=== PATIENT | female | born 1930 | race Caucasian/White ===

== ENCOUNTER 2020-08-23 05:29 | Inpatient (IN) | payer OTHER, SELFPAY ==
[2020-08-23] VITALS (11 sets, daily range): BP systolic 61–116; BP diastolic 30–83
[~2020-08-23] VITALS: Ht 157.5 cm; Wt 61.2 kg
--- NOTE | 2020-08-23 05:29 | NUR ---
PT YEN ALS. TAKEN TO BED 10
--- NOTE | 2020-08-23 05:29 | NUR ---
Dr. Chapman examining patient.
--- NOTE | 2020-08-23 05:44 | NUR ---
Respiratory Therapist at bedside for respiratory intervention.
--- NOTE | 2020-08-23 05:44 | NUR ---
X-Ray at bedside.
[2020-08-23] MEDS ORDERED: LEVALBUTEROL 0.63 MG/3 ML NEBU INH ONE (05:50)
[2020-08-23] MEDS ORDERED: DILTIAZEM 25 MG/5 ML VIAL IVP ONE ×2 (05:50→06:35)
--- NOTE | 2020-08-23 06:00 | NUR ---
Vandana swab collected.
[2020-08-23 06:06] LABS: BASOPHILS # (AUTO) 0.1 K/uL (0.00-0.22); BASOPHILS % (AUTO) 0.5 % (0.0-2.0); EOSINOPHILS % (AUTO) 0.2 % (0.0-4.0); HEMOGLOBIN 13.2 g/dL (12.0-16.0); LYMPHOCYTES # (AUTO) 1.3 K/uL (2.5-16.5); LYMPHOCYTES % (AUTO) 12.6 % (20.5-51.1); MEAN CORPUSCULAR HEMOGLOBIN 30 pg (27-31); MEAN CORPUSCULAR HGB CONC 32 g/dL (33-37); MEAN CORPUSCULAR VOLUME 96.1 fL (80-94); MONOCYTES % (AUTO) 9.7 % (1.7-9.3); NEUTROPHILS # (AUTO) 7.7 K/uL (1.8-7.7); PLATELET COUNT (AUTO) 473 K/uL (140-450); RED BLOOD CELL COUNT(AUTO) 4.37 MIL/uL (4.20-5.40); RED CELL DISTRIBUTION WIDTH 18.1 % (11.6-13.7)
--- NOTE | 2020-08-23 06:10 | NUR ---
spoke with family member of pt regarding CT contrast consent and gave phone consent over the phone.
[2020-08-23 06:13] LABS: ANION GAP 5.5 (8-16); CARBON DIOXIDE 36.9 mmol/L (21-32); CHLORIDE 102 mmol/L (98-107); CREATININE 0.8 mg/dL (0.6-1.3); GLUCOSE 99 mg/dL (74-106); POTASSIUM 5.4 mmol/L (3.5-5.1); SODIUM SERUM 139 mmol/L (136-145); UREA NITROGEN, BLOOD 23 mg/dL (7-18)
--- NOTE | 2020-08-23 06:15 | NUR ---
bib EMS from [facility] and placed to bed 10. originally on 15lpm NRB at 88%. This is pt is an 89 year old female with hx of A.fib, HTN, GERD, glaucoma, HLD, left femur fx s/p ORIF. coming in for SOB and decreased saturations. absent BS on left side. Diminished throughout on left. CR >4. currently a/o x 2, gcs 14. placed IV on Rac, RFA. initiated sepsis protocol per Dr. Chapman. terranceda
[2020-08-23 06:19] LABS: ALBUMIN 2.9 g/dL (3.4-5.0); ASPARTATE AMINOTRANSFERASE 12 U/L (15-37); LIPASE 81 U/L (73-393); TOTAL BILIRUBIN 0.5 mg/dL (0.0-1.0)
[2020-08-23] MEDS ORDERED: AMLO10TA PO (06:20)
[2020-08-23] MEDS ORDERED: ASCO500T95 PO (06:20)
[2020-08-23] MEDS ORDERED: LACT1CAP59 PO (06:20)
[2020-08-23] MEDS ORDERED: ALPOS OP (06:20)
[2020-08-23] MEDS ORDERED: LOSA100T1 PO (06:20)
[2020-08-23] MEDS ORDERED: OMEP20EC11 PO (06:20)
[2020-08-23] MEDS ORDERED: WARF4TAB84 PO (06:20)
--- NOTE | 2020-08-23 06:20 | NUR ---
Bipap settings as follows; 19/09 I/E 20 R 100 fi02
[2020-08-23] MEDS ORDERED: DILTIAZEM 125 MG in DEXTROSE 5% 100 ML IV ONE (06:35)
[2020-08-23] MEDS ORDERED: DILTIAZEM 125 MG/25 ML VIAL IV ONE (06:37)
--- NOTE | 2020-08-23 06:56 | NUR ---
ABG draw at this time by RT at bedside.
[2020-08-23] MEDS ORDERED: INTUBATION KIT MC ONE (07:04)
[2020-08-23] MEDS ORDERED: PROPOFOL 1000 MG/100 ML PREMIX 0 ML IV ONE (07:05)
--- NOTE | 2020-08-23 07:07 | NUR ---
Dr. Chapman at patient bedside.
--- NOTE | 2020-08-23 07:22 | NUR ---
Report received from RUDY Moulton; care assumed.
--- NOTE | 2020-08-23 07:24 | NUR ---
SBAR report given to Randee GRANT.
--- NOTE | 2020-08-23 07:35 | NUR ---
Patient will be admitted to care of Deborah Shelley MD. Admited to ICU. Will go to room 5. Belongings list completed. Report to RUDY Disla.
--- NOTE | 2020-08-23 07:35 | NUR ---
RECEIVED REPORT FROM ED NURSE FOR CONTINUITY OF CARE. AO TO NAME, FOLLOW COMMANDS. AFIB ON MONITOR. ON BIPAP FIO2 100, IPAP 14, EPAP 7, SPO2 95. FELIPE CATH IN PLACE, INSERTED ON 08/23. IV CLEAN, DRY AND INTACT, RFA 20 G INFUSING CARDIZEM DRIP 5 MG/HR, RAC 20 G SALINE LOCKED. VSS. AWAITING FOR TRANSFER. WILL CONTINUE TO MONITOR.
--- NOTE | 2020-08-23 07:59 | NUR ---
PATIENT TRANSPORTED TO ICU5 WITH LEGAL INSTRUMENTS EXAMINER ON BIPAP, NO DISTRESS OR DESATS NOTED, HANDED OFF CARE TO JET WIPER DEEPA.
--- NOTE | 2020-08-23 08:00 | NUR ---
MRSA NARES COLLECTED AND SENT TO LAB.
--- NOTE | 2020-08-23 08:25 | NUR ---
RECEIVED PATIENT FROM ED NURSE. AO TO NAME. AFIB ON MONITOR. ON BIPAP FIO2 100, IPAP 14, EPAP 7, RATE 26. IVS CLEAN, DRY AND INTACT, ON RFA 20 G INFUSING CARDIZEM DRIP AT 5 ML/HR AND RAC 20 G SALINE LOCKED. TEMPERATURE, PULSE 97, R 46, BP 99/52, O2 91, FLACC 0. SKIN TEAR ON COCCYX, 6 GIO ON LEFT UPPER THIGH. BRUISES ON LEFT LABIA MAJORA AND ON LEFT UPPER THIGH. PICTURES TAKEN. GOWN AND LINEN CHANGED. FILM CLEANER, PULSE OXIMETER, AND SAFETY MEASURES IN PLACE. BED LOCKED, BED IN LOW POSITION, HEAD OF BED AT 30 DEGREES. WILL CONTINUE TO MONITOR.
[2020-08-23] MEDS ORDERED: NACL 0.9% 1,000 ML IV SCH (08:30)
[2020-08-23] MEDS ORDERED: ZOLPIDEM 5 MG TAB PO PRN (08:30)
[2020-08-23] MEDS ORDERED: ONDANSETRON 4 MG/2 ML VIAL IVP PRN (08:30)
[2020-08-23] MEDS ORDERED: MORPHINE SULFATE 2 MG/ML SYR IVP PRN (08:30)
[2020-08-23] MEDS ORDERED: HYDROcodone/APAP 5/325 MG 1 TAB TAB PO PRN (08:30)
[2020-08-23] MEDS ORDERED: LORazepam 2 MG/ML VIAL IM/IVP PRN (08:30)
--- NOTE | 2020-08-23 08:32 | NUR ---
DC [age] YRS OLD FEMALE PATIENT WAS ADMITTED FROM [facility] WITH A DX OF ACUTE RESP FAILURE , PLEURAL EFFUSION. PT HAS A HX OF A-FIB, ANEMIA LEFT LOWER EXT DVT HLD, GERD URINARY RETENTION S/P FELIPE INSERTION, LEFT FEMUR FRACTION S/P ORIF. CXR SHOWED LARGE LEFT OPACIFICATION WITH POSSIBLE ATELECTASIS VS EFFUSION. RAPID COVID TEST NEGATIVE. PLACED PT ON BIPAP 100% FIO2, SATING 92%. ADMINISTERED IV ABX ROCEPHIN AND CONTINUED HOME MEDS. CONSULTED WITH CARDIO AND PULMO. DC PLAN PER PATIENT RESPOND TO THE TREATMENT. CM TO FOLLOW
[2020-08-23] MEDS ORDERED: DOCUSATE 100 MG/10 ML UDC PO PRN (08:40)
[2020-08-23] MEDS ORDERED: ACETAMINOPHEN 650 MG/20.3 ML UDC PO PRN (08:40)
[2020-08-23] MEDS ORDERED: DILTIAZEM 125 MG in DEXTROSE 5% 100 ML IV SCH (09:05)
[2020-08-23] MEDS ORDERED: FUROSEMIDE 40 MG/4 ML VIAL IVP SCH (09:05)
--- NOTE | 2020-08-23 09:14 | NUR ---
RCV'D PT FROM ED ON BIPAP. SETTINGS CHARTED. NO SOB NOTED. BIPAP CONNECTED TO RED OUTLET ALARMS AUDIBLE. AMBU BAG AT BEDSIDE. WILL CONTINUE TO MONITOR PATIENT.
--- NOTE | 2020-08-23 09:20 | NUR ---
INFLUENZA A&B COLLECTED AND SENT TO LAB.
[2020-08-23] MEDS ORDERED: PHYTONADIONE 10 MG/ML AMP SUBQ SCH (09:30)
[2020-08-23] MEDS ORDERED: cefTRIAXone 1,000 MG in NACL 0.9% 50 ML IV SCH (09:40)
--- NOTE | 2020-08-23 10:08 | NUR ---
CALLED [facility] AND SPOKE WITH ANYA GOMEZ. OBTAINED MEDICAL INFORMATION FOR ADMISSION. PER JASON, PATIENT CAME FROM [facility] AFTER SHE HAS HER PROCEDURE ORIF. PER JASON, HER RECORD SHOWS THAT PATIENT FALL AT HOME ON 07/28 AND DID THE PROCEDURE ON 07/30 AT [facility]. SHE IS UPDATED WITH PNA AND FLU VACCINE. SHE SUGGESTED TO CALL PATIENT'S FAMILY MEMBERS FOR THE REST OF THE MEDICAL INFORMATION SINCE SHE HAS LIMITED INFORMATION.
--- NOTE | 2020-08-23 10:18 | NUR ---
CALLED GRANDDAUGHTER BENJI, NO ANSWER, LEFT MESSAGE TO CALL BACK.
--- NOTE | 2020-08-23 10:20 | NUR ---
CALLED PATIENT'S GRANDSON RENARD. PER RENARD, PATIENT HAVE RECEIVED COVID VACCINES AND COMPLETED, BUT HE DOESNT KNOW WHICH VACCINE. ABLE TO PROVIDE SOME MEDICAL INFORMATION. PER RENARD, HIS SISTER KNOWS MORE INFORMATION. AWAITING FOR [facility] RETURN CALL.
--- NOTE | 2020-08-23 10:38 | NUR ---
DR. ALISE DEL REAL, RECEIVED TORB FOR PICC LINE INSERTION. WILL CALL SOFÍA GLYNN, FOR CONSENT. WILL CALL PICC LINE NURSE AFTER RECEIVING CONSENT. WILL CONTINUE TO MONITOR.
--- NOTE | 2020-08-23 10:51 | NUR ---
CALLED PATIENT GRANDDAUGHTER, BENJI. BENJI QUESTIONS ANSWERED. BENJI AGREED AND CONSENT TO PROCEDURE.
--- NOTE | 2020-08-23 10:52 | NUR ---
PER BENJI THE GRANDDAUGHTER, PATIENT IS UP TO DATE WITH ALL VACCINES. RECEIVED 2 DOSES OF MODERNA COVID VACCINE WELL. BENJI STATED THAT PATIENT FALL AT HOME ON 07/28, ORIF WAS DONE ON 07/30 IN [facility], TRANSFERRED TO [facility] [place] ON 08/09.
--- NOTE | 2020-08-23 11:05 | NUR ---
CALLED PICC LINE AGENCY, PICC LINE NURSE IS LO GRANT. AWAITING CALL BACK FOR ETA. WILL CONTINUE TO MONITOR.
[2020-08-23 11:24] LABS: CHOL/HDL RATIO 2.8 (1-4.5); FREE T4 (FREE THYROXINE) 1.2 ng/dL (0.76-1.46); MAGNESIUM 1.8 mg/dL (1.8-2.4); PHOSPHORUS 4.4 mg/dL (2.5-4.9); THYROID STIMULATING HORMONE 2.02 uIU/mL (0.34-3.74)
--- NOTE | 2020-08-23 11:30 | NUR ---
PATIENT HAS BEEN SCREENED AND CATEGORIZED HIGH NUTRITION RISK. PATIENT WILL BE SEEN WITHIN 1-2 DAYS OF ADMISSION. 08/23/20-08/24/20 FNS CONSULT RECEIVED FOR GIOVANA OF [address]
--- NOTE | 2020-08-23 11:31 | NUR ---
CRITICAL LAB, PT 72.6, INR 7.6. AWARE, NO ORDERS PLACED. DR SHIELDS ORDERED VITAMIN K.
--- NOTE | 2020-08-23 11:34 | NUR ---
PT TOLERATING WELL. PT IS QUIET. NO DISTRESS NOTED. DECREASED WOB. WILL CONTINUE TO MONITOR.
[2020-08-23 11:39] LABS: PROTHROMBIN TIME 72.6 secs (10.8-13.4)
--- NOTE | 2020-08-23 12:46 | NUR ---
PATIENT APPEARS TO BE ANXIOUS ON BIPAP, DR CARRERO ORDERS TO GIVE PRN ATIVAN 0.5 MG VIA IVP. RT RT EMELIA HART IS AT BEDSIDE DRAWING ABG. SIMULATION TECHNICIAN IS ALSO DOING ECHOCARDIOGRAM AT THIS TIME. WILL CLOSELY MONITORING PATIENT. SAFETY MEASURES IN PLACE.
--- NOTE | 2020-08-23 12:55 | NUR ---
ABG DONE WITH NO INCIDENT. RESULTS GIVEN TO MD CAMACHO AND ALSO PAGED MD RAI WAITING FOR CALL BACK.
[2020-08-23] MEDS ORDERED: SODIUM ZIRCONIUM CYCLOSILICATE 10 GM POWD.PACK PO SCH (13:10)
--- NOTE | 2020-08-23 13:19 | NUR ---
RECEIVED TORB ORDERS FROM DR CARRERO FOR INSERT NGT/OGT, AND CHANGE IVF TO D5 0.45NS AT 100 ML/HR.
[2020-08-23] MEDS ORDERED: DEXT 5% / NACL 0.45% 1,000 ML IV SCH (13:20)
--- NOTE | 2020-08-23 13:25 | NUR ---
GOT CALL FROM MD RAI. GAVE ABG RESULTS. PER MD RAI PT NEEDS TO BE INTUBATED. CALLED MD CAMACHO AND NOTIFIED HER. ALSO CALL ED MD PEREZ. SETTING UP FOR INTUBATION. PT WOB IS INCREASED. SPO2 IS 85%. MONITORING PATIENT.
--- NOTE | 2020-08-23 13:26 | NUR ---
BP IS LOW 85/53 PULSE 103, PATIENT IS ON CARDIZEM DRIP. PAGED DR STRONG, AWAITING FOR CALL BACK.
--- NOTE | 2020-08-23 13:29 | NUR ---
CALLED TO BEDSIDE FOR RSI. SUCCESSFUL INTUBATION BY DR PEREZ. REMAINED AT BEDSIDE DUE TO CRITICAL CONDITION OF PATIENT. APPROX 1338 CODE BLUE WAS CALLED DUE TO PATIENT BEING PULSELESS, PLEASE SEE CODE SHEET FOR DETAILS OF RESUSCITATION.
--- NOTE | 2020-08-23 13:30 | NUR ---
PT INTUBATED BY DR. WYNN, TOLERATED WELL, ETOMIDATE 5MG AND 60MG ROCURONIUM GIVEN DURING INTUBATION. ETT 7.5 TAPED AT 24 ON THE TEETH. WILL CONTINUE TO MONITOR.
--- NOTE | 2020-08-23 13:30 | NUR ---
PT INTUBATED WITH 7.5 ETT AT 24 CM AT LIP BY MD PEREZ. ETT IN IS PALCE AND SECURED WITH ANCHOR-FAST. ETT PLACEMENT CONFIRMED BY BREATH SOUNDS AND BEDSIDE CXR. MD CAMACHO AT BEDSIDE. VENT SETTINGS PRVC 400,25,PEEP 8, FIO2 100%. PT HAS MODERATED AMOUNT OF THICK YELLOW SECRETIONS. SPUTUM SAMPLE DONE AND SENT TO LAB. WILL CONTINUE TO MONITOR PATIENT.
--- NOTE | 2020-08-23 13:31 | NUR ---
RECEIVED CALL BACK FROM DR STRONG, INFORMED LATEST VITAL SIGNS, PER DR LIGIA HERNÁNDEZ. IF PATIENT IS REMAIN HYPOTENSIVE, CALL HIM BACK TO GET ORDER FOR BP SUPPORT.
--- NOTE | 2020-08-23 13:38 | NUR ---
PT'S HR IN 30'S WITH NO PULSE. RN INITIATED CODE BLUE. SPR STAT
--- NOTE | 2020-08-23 13:38 | NUR ---
CPR STARTED IMMEDIATELY. PT DISCONNECTED FROM VENTILATOR AND AMBU BAG USED WITH 100% FIO2.
--- NOTE | 2020-08-23 13:39 | NUR ---
UNABLE TO PALPATE PULSE AND NO PULSE DETECTED WITH DOPPLER. CODE BLUE ACTIVATED. SEE CODE SHEET.
[2020-08-23] MEDS ORDERED: ATROPINE 1 MG/10 ML SYR IVP ONE ×2 (13:42→15:55)
[2020-08-23 13:53] LABS: APPEARANCE,URINE CLEAR (CLEAR); BILIRUBIN,URINE NEGATIVE (NEGATIVE); BLOOD, URINE NEGATIVE (NEGATIVE); COLOR,URINE YELLOW (YELLOW); LEUKOCYTE ESTERASE ,URINE NEGATIVE (NEGATIVE); NITRITE, URINE NEGATIVE (NEGATIVE); PH,URINE 5.5 (5.0-9.0); UGLUCOSE TRACE (NEGATIVE)
[2020-08-23 13:59] LABS: RBC,URINE 0-5 /HPF (0-5); WBC,URINE 0-5 /HPF (0-5)
[2020-08-23] MEDS ORDERED: NOREPINEPHRINE 4 MG in DEXTROSE 5% 250 ML IV PRN (14:15)
--- NOTE | 2020-08-23 14:21 | NUR ---
PATIENT FAMILY NOTIFIED OF . AWARE THAT [facility] DOES NOT HAVE A [place]. MABEL, GRAND DAUGHTER AWARE AND WILL CALL BACK WHEN MORTUARY SELECTED.
--- NOTE | 2020-08-23 14:21 | NUR ---
PATIENT WAS PULSELESS, UNABLE TO PALPATE PULSE, NOR HEAR PULSE WITH DOPPLER, NOR ULTRASOUND, PUPILS FIXATED, NONREACTIVE TO LIGHT, METER CHANGES RECORDS CLERK PRESENT AND PRONOUNCED .
--- NOTE | 2020-08-23 14:35 | NUR ---
ADMITTING NOTIFIED OF PATIENT'S PASSING.
--- NOTE | 2020-08-23 14:35 | NUR ---
CALLED [employer], PATIENT DOES NOT QUALIFY ORGAN DONOR. SPOKE WITH OSMANY, CONFIRMATION NUMBER: [phone].
--- NOTE | 2020-08-23 14:40 | NUR ---
NOTIFIED DR. CARRERO THAT PATIENT HAS BEEN PRONOUNCED AT 1421.
--- NOTE | 2020-08-23 15:31 | NUR ---
ROUTE SALESPERSON CALLED BACKED. INFORMED SHERIFF ANA HUANG OF PATIENTS INFO. STATED. CAN RELEASE BODY TO FAMILY SELECTED MORTUARY. CORONERS .
--- NOTE | 2020-08-23 15:37 | NUR ---
SOFÍA GLYNN IS AT BEDSIDE VIEWING PATIENT.
--- NOTE | 2020-08-23 15:50 | NUR ---
SCOUT AGUILAR CALLED STATED MICROFICHE DUPLICATOR TO FOR PATIENT WILL BE AT 1900. FAMILY NOTIFIED.
--- NOTE | 2020-08-23 17:40 | NUR ---
POST MORTEM CARE PROVIDED. PATIENT CLEANED, IVS REMOVED, FELIPE REMOVED, NGT REMOVED, ETT REMOVED, ID BAND REMOVED, PATIENT PLACED IN BAG. WILL CALL FOR INTERNATIONAL TRADE MANAGER AFTER FAMILY LEAVES.
--- NOTE | 2020-08-23 18:50 | NUR ---
BODY RELEASED TO FAMILY PREFERRED MORTUARY SCOUT AGUILAR.
[2020-08-23] MEDS ORDERED: PIPERACILLIN/TAZOBACTAM 3.375 GM in DEXTROSE 5% 50 ML IV SCH (21:00)
== END 2020-08-23 18:50 | DRG 291 ==
LOC: MED 05:29 → MIC 07:06
PROVIDERS: ADMIT Family Medicine; ATTEND Family Medicine
PROC: 5A09357 Assistance with Respiratory Ventilation, Less than 24 Consecutive Hours, Continuous Positive Airway Pressure (ICD-10-PCS; principal; 2020-08-23)
PROC: 0BH17EZ Insertion of Endotracheal Airway into Trachea, Via Natural or Artificial Opening (ICD-10-PCS; 2020-08-23)
DX: I11.0 Hypertensive heart disease with heart failure (principal); J96.21 Acute and chronic respiratory failure with hypoxia; J96.22 Acute and chronic respiratory failure with hypercapnia; E44.0 Moderate protein-calorie malnutrition; I46.9 Cardiac arrest, cause unspecified; I50.43 Acute on chronic combined systolic (congestive) and diastolic (congestive) heart failure; Z20.822 Contact with and (suspected) exposure to COVID-19; D63.8 Anemia in other chronic diseases classified elsewhere; E78.5 Hyperlipidemia, unspecified; H40.9 Unspecified glaucoma; I48.91 Unspecified atrial fibrillation; I25.10 Atherosclerotic heart disease of native coronary artery without angina pectoris; K21.9 Gastro-esophageal reflux disease without esophagitis; R13.11 Dysphagia, oral phase; T45.515A Adverse effect of anticoagulants, initial encounter; Y92.89 Other specified places as the place of occurrence of the external cause; Z86.718 Personal history of other venous thrombosis and embolism; Z68.24 Body mass index [BMI] 24.0-24.9, adult; E87.5 Hyperkalemia
CPT/HCPCS: 36415; 51702; 71045; 76604; 80053; 81001; 82150; 83036; 83605; 83690; 83735; 83880; 84100; 84439; 84443; 84484; 85025; 85610; 85730; 87040; 87081; 87086; 87804; 93005; 96374; 99291; 99292; J0461; J0696; J1940; J2060; J2543; J2704; J3430; J3490; J7060; J7614